=== PATIENT | male | born 1970 | race Caucasian/White ===

== ENCOUNTER 2023-12-21 16:36 | Emergency (ER) | payer MEDICARE, OTHER ==
[2023-12-21 16:44] VITALS: TEMP 97.9
--- NOTE | 2023-12-21 17:11 | ED ---
Nausea/Vomiting/Diarrhea HPI - General Source: patient, RN notes reviewed Mode of arrival: ambulatory Limitations: no limitations <Demetria Ricardo - Last Filed: 12/21/23 17:06> <Mayra Sandoval - Last Filed: 12/21/23 23:18> - General Chief complaint: Nausea/Vomiting/Diarrhea Stated complaint: Nausea,Diarrhea Time Seen by Provider: 12/21/23 16:50 - History of Present Illness Initial comments: quick note- This is a 53 year old male emergency department chief complaint of bilateral inner groin pain, nausea and vomiting over the past month. He states that he's felt chilled with no reported fevers. Denies previous surgeries on his abdomen. (Demetria Rciardo) 53-year-old transgender female presenting with chief complaint of pain to the bilateral inner thighs. Patient states that they currently do not have anywhere to stay, they are recently evicted. States that when they walk this makes the pain to the inner thighs worse. Patient also complaining of pain to the right foot. No new injury or trauma. No redness or swelling. Patient admits to runny nose. Denies fever, chills, nausea, vomiting, chest pain, difficulty breathing, abdominal pain. (Mayra Sandoval) - Related Data Home Medications Medication Instructions Recorded Confirmed Baclofen [Lioresal] 10 mg PO BID 12/04/13 12/23/14 Escitalopram [Lexapro] 20 mg PO DAILY 12/04/13 12/23/14 Estrogens, Conjugated [Premarin] 5 mg PO BID 12/04/13 12/23/14 Gabapentin [Neurontin] 600 mg PO BID 12/04/13 12/23/14 Ibuprofen [Motrin] 600 mg PO BID PRN 12/04/13 12/23/14 Ipratropium/Albuterol Sulfate 1 puff INHALATION QID 12/04/13 12/23/14 [Combivent Respimat Inhaler] Medroxyprogesterone Acetate 10 mg PO DAILY 12/04/13 12/23/14 Spironolactone 50 mg PO DAILY 12/04/13 12/23/14 Ziprasidone [Geodon] 60 mg PO BID 12/04/13 12/23/14 traMADol HCl [Ultram] 50 mg PO Q4H PRN 12/23/14 12/23/14 Previous Rx's Medication Instructions Recorded Indomethacin [Indocin] 50 mg PO TID PRN #15 capsule 12/21/23 Allergies Allergy/AdvReac Type Severity Reaction Status Date / Time No Known Allergies Allergy Verified 12/21/23 16:44 Review of Systems ROS Other: All systems not noted in ROS Statement are negative. <Demetria Ricardo - Last Filed: 12/21/23 17:06> ROS Other: All systems not noted in ROS Statement are negative. <Mayra Sandoval - Last Filed: 12/21/23 23:18> ROS Statement: Those systems with pertinent positive or pertinent negative responses have been documented in the HPI. Past Medical History Past Medical History: Asthma, Hypertension Additional Past Medical History / Comment(s): neck pain History of Any Multi-Drug Resistant Organisms: None Reported Past Surgical History: Unable to Obtain Past Psychological History: Unable to Obtain Smoking Status: Current some day smoker Past Alcohol Use History: None Reported Past Drug Use History: None Reported <Demetria Ricardo - Last Filed: 12/21/23 17:06> General Exam Limitations: no limitations <Demetria Ricardo - Last Filed: 12/21/23 17:06> Limitations: no limitations General appearance: alert, in no apparent distress Head exam: Present: atraumatic, normocephalic Eye exam: Present: normal appearance, EOMI Neck exam: Present: normal inspection. Absent: meningismus Respiratory exam: Absent: respiratory distress Cardiovascular Exam: Present: regular rate Left Foot/Toe exam: Present: normal inspection, full ROM, tenderness. Absent: swelling, abrasion, laceration, erythema, puncture wound Neurological exam: Present: alert, oriented X3 Psychiatric exam: Present: normal affect, normal mood Skin exam: Present: intact, other (Redness to the bilateral inner thighs) <Mayra Sandoval - Last Filed: 12/21/23 23:18> - General Exam Comments Initial Comments: Visual Physical Exam Vital signs reviewed General: Well-appearing, nontoxic, no acute distress. Head: Normocephalic, atraumatic Eyes: PERRLA, EOMI ENT: Airway patent Chest: Nonlabored breathing Skin: No visual rash, normal skin tone Neuro: Alert and oriented 3 Musculoskeletal: No gross abnormalities (Stieler,Demetria) Course Vital Signs 12/21/23 12/21/23 12/21/23 16:42 21:33 22:53 Temperature 97.9 F Pulse Rate 74 81 55 L Respiratory 18 16 16 Rate Blood Pressure 131/81 128/80 121/69 O2 Sat by Pulse 98 100 97 Oximetry Medical Decision Making <Demetria Ricardo - Last Filed: 12/21/23 17:06> - Lab Data Result diagrams: 12/21/23 17:32 12/21/23 19:36 <Mayra Sandoval - Last Filed: 12/21/23 23:18> - Medical Decision Making I completed the quick note portion of this chart signed Demetria Ricardo PA-C (Demetria Ricardo) Was pt. sent in by a medical professional or institution ([facility], REHABILITATION THERAPIST, urgent care, hospital, or penitentiary...) When possible be specific @ -No Did you speak to anyone other than the patient for history (EMS, parent, family, police, friend...)? What history was obtained from this source @ -No Did you review nursing and triage notes (agree or disagree)? Why? @ -I reviewed and agree with nursing and triage notes Were old charts reviewed (outside hosp., previous admission, EMS record, old EKG, old radiological studies, urgent care reports/EKG's, penitentiary records)? Report findings @ -No old charts were reviewed Differential Diagnosis (chest pain, altered mental status, abdominal pain women, abdominal pain men, vaginal bleeding, weakness, fever, dyspnea, syncope, headache, dizziness, GI bleed, back pain, seizure, CVA, palpatations, mental health, musculoskeletal)? @ -Differential Musculoskeletal Muscular strain, contusion, ligament sprain, fracture, arthritis, septic arthritis, bursitis, cellulitis, muscle spasm, nerve compression, DVT, arterial occlusion, herpes zoster, electrolyte abnormality, tumor.... This is not meant to be in all inclusive list EKG interpreted by me (3pts min.). @ -As above X-rays interpreted by me (1pt min.). @ -Foot x-ray shows moderate first MTP joint OA. Small plantar heel spur all. No acute osseous body seen. CT interpreted by me (1pt min.). @ -None done U/S interpreted by me (1pt. min.). @ -None done What testing was considered but not performed or refused? (CT, X-rays, U/S, labs)? Why? @ -None What meds were considered but not given or refused? Why? @ -None Did you discuss the management of the patient with other professionals (professionals i.e. , PA, REHABILITATION THERAPIST, lab, RT, psych nurse, social services analyst, button cutter, teacher, senior escrow officer, bottle caser)? Give summary @ -No Was smoking cessation discussed for >3mins.? @ -No Was critical care preformed (if so, how long)? @ -No Were there social determinants of health that impacted care today? How? (Homelessness, low income, unemployed, alcoholism, drug addiction, transportation, low edu. Level, literacy, decrease access to med. care, long term, rehab)? @ -No Was there de-escalation of care discussed even if they declined (Discuss DNR or withdrawal of care, Hospice)? DNR status @ -No What co-morbidities impacted this encounter? (DM, HTN, Smoking, COPD, CAD, Cancer, CVA, ARF, Chemo, Hep., AIDS, mental health diagnosis, sleep apnea, morbid obesity)? @ -None Was patient admitted / discharged? Hospital course, mention meds given and route, prescriptions, significant lab abnormalities, going to OR and other pertinent info. @ -53-year-old transgender female presenting with chief complaint of pain to the bilateral inner thighs as well as the left foot. On exam there is some redness to the skin folds on the inner thighs. Left foot shows no cellulitic changes, no lacerations or abrasions. Pain surrounding the MTP joint. Lab work shows no leukocytosis or anemia. Uric acid WNL. Foot x-ray negative for fract ure or dislocation. The patient's inner thigh pain seems to be attributed to yeast infection of the skin. Provided with clotrimazole betamethasone cream. Patient is provided with indomethacin for foot pain. Discharged. Follow-up with PCP. Report back to ER with any new or worsening symptoms. Discussed return parameters and answered all questions. Patient conveyed verbal understanding and agreed to the plan. I discussed this case in detail with my attending Dr. Sandoval Undiagnosed new problem with uncertain prognosis? @ -No Drug Therapy requiring intensive monitoring for toxicity (Heparin, Nitro, Insulin, Cardizem)? @ -No Were any procedures done? @ -No Diagnosis/symptom? @ -Yeast infection of the skin, gout Acute, or Chronic, or Acute on Chronic? @ -Acute Uncomplicated (without systemic symptoms) or Complicated (systemic symptoms)? @ -Uncomplicated Side effects of treatment? @ -No Exacerbation, Progression, or Severe Exacerbation? @ -No Poses a threat to life or bodily function? How? (Chest pain, USA, [place], pneumonia, PE, COPD, DKA, ARF, appy, cholecystitis, CVA, Diverticulitis, Homicidal, Suicidal, threat to staff... and all critical care pts) @ -Low likelihood (Mayra Sandoval) - Lab Data Lab Results 12/21/23 12/21/23 12/21/23 Range/Units 17:32 17:32 19:36 WBC 9.7 (3.8-10.6) k/uL RBC 4.38 (4.30-5.90) m/uL Hgb 13.7 (13.0-17.5) gm/dL Hct 42.3 (39.0-53.0) % MCV 96.7 (80.0-100.0) fL MCH 31.3 (25.0-35.0) pg MCHC 32.4 (31.0-37.0) g/dL RDW 13.3 (11.5-15.5) % Plt Count 198 (150-450) k/uL MPV 9.9 Neutrophils % 63 % Lymphocytes % 25 % Monocytes % 6 % Eosinophils % 3 % Basophils % 1 % Neutrophils # 6.0 (1.3-7.7) k/uL Lymphocytes # 2.4 (1.0-4.8) k/uL Monocytes # 0.6 (0-1.0) k/uL Eosinophils # 0.3 (0-0.7) k/uL Basophils # 0.1 (0-0.2) k/uL Sodium 140 (137-145) mmol/L Potassium 3.7 (3.5-5.1) mmol/L Chloride 107 (98-107) mmol/L Carbon Dioxide 22 (22-30) mmol/L Anion Gap 11 mmol/L BUN 17 (9-20) mg/dL Creatinine 0.90 (0.66-1.25) mg/dL Est GFR (CKD-EPI)AfAm >90 (>60 ml/min/1.73 sqM) Est GFR (CKD-EPI)NonAf >90 (>60 ml/min/1.73 sqM) Glucose 91 (74-99) mg/dL Plasma Lactic Acid Serafin 1.6 (0.7-2.0) mmol/L Uric Acid (3.5-8.5) mg/dL Calcium 9.3 (8.4-10.2) mg/dL Total Bilirubin 1.2 (0.2-1.3) mg/dL AST 48 (17-59) U/L ALT 21 (4-49) U/L Alkaline Phosphatase 75 (38-126) U/L Total Protein 7.1 (6.3-8.2) g/dL Albumin 4.5 (3.5-5.0) g/dL Amylase 48 (30-110) U/L Lipase 134 (23-300) U/L Urine Color Urine Appearance (Clear) Urine pH (5.0-8.0) Ur Specific Antonito (1.001-1.035) Urine Protein (Negative) Urine Glucose (UA) (Negative) Urine Ketones (Negative) Urine Blood (Negative) Urine Nitrite (Negative) Urine Bilirubin (Negative) Urine Urobilinogen (<2.0) mg/dL Ur Leukocyte Esterase (Negative) 12/21/23 12/21/23 Range/Units 21:15 21:51 WBC (3.8-10.6) k/uL RBC (4.30-5.90) m/uL Hgb (13.0-17.5) gm/dL Hct (39.0-53.0) % MCV (80.0-100.0) fL MCH (25.0-35.0) pg MCHC (31.0-37.0) g/dL RDW (11.5-15.5) % Plt Count (150-450) k/uL MPV Neutrophils % % Lymphocytes % % Monocytes % % Eosinophils % % Basophils % % Neutrophils # (1.3-7.7) k/uL Lymphocytes # (1.0-4.8) k/uL Monocytes # (0-1.0) k/uL Eosinophils # (0-0.7) k/uL Basophils # (0-0.2) k/uL Sodium (137-145) mmol/L Potassium (3.5-5.1) mmol/L Chloride (98-107) mmol/L Carbon Dioxide (22-30) mmol/L Anion Gap mmol/L BUN (9-20) mg/dL Creatinine (0.66-1.25) mg/dL Est GFR (CKD-EPI)AfAm (>60 ml/min/1.73 sqM) Est GFR (CKD-EPI)NonAf (>60 ml/min/1.73 sqM) Glucose (74-99) mg/dL Plasma Lactic Acid Serafin (0.7-2.0) mmol/L Uric Acid 5.7 (3.5-8.5) mg/dL Calcium (8.4-10.2) mg/dL Total Bilirubin (0.2-1.3) mg/dL AST (17-59) U/L ALT (4-49) U/L Alkaline Phosphatase (38-126) U/L Total Protein (6.3-8.2) g/dL Albumin (3.5-5.0) g/dL Amylase (30-110) U/L Lipase (23-300) U/L Urine Color Yellow Urine Appearance Clear (Clear) Urine pH 5.5 (5.0-8.0) Ur Specific Antonito 1.029 (1.001-1.035) Urine Protein Trace H (Negative) Urine Glucose (UA) Trace H (Negative) Urine Ketones 1+ H (Negative) Urine Blood Negative (Negative) Urine Nitrite Negative (Negative) Urine Bilirubin Negative (Negative) Urine Urobilinogen 2.0 (<2.0) mg/dL Ur Leukocyte Esterase Negative (Negative) Disposition <Demetria Ricardo - Last Filed: 12/21/23 17:06> Is patient prescribed a controlled substance at d/c from ED?: No <Mayra Sandoval - Last Filed: 12/21/23 23:18> Clinical Impression: Yeast infection of the skin, Gout Disposition: HOME SELF-CARE Condition: Good Instructions (If sedation given, give patient instructions): Low Purine Diet (ED), Gout (ED), Skin Yeast Infection (ED) Additional Instructions: Follow-up with your PCP. Report back to ER with any new or worsening symptoms. Apply antifungal cream twice daily. Prescriptions: Indomethacin [Indocin] 50 mg PO TID PRN #15 capsule PRN Reason: Pain Referrals: None,Stated [REFERRING] - 1-2 days Dell Alvarez MD [STAFF PHYSICIAN] - 1-2 days
[2023-12-21 18:12] LABS: Basophils # (A) 0.1 k/uL (0-0.2); Basophils % (A) 1 %; Eosinophils # (A) 0.3 k/uL (0-0.7); Eosinophils % (A) 3 %; HCT 42.3 % (39.0-53.0); HGB 13.7 gm/dL (13.0-17.5); Lymphocytes # (A) 2.4 k/uL (1.0-4.8); Lymphocytes % (A) 25 %; MCH 31.3 pg (25.0-35.0); MCHC 32.4 g/dL (31.0-37.0); MCV 96.7 fL (80.0-100.0); Mean Platelet Volume 9.9; Monocytes # (A) 0.6 k/uL (0-1.0); Monocytes % (A) 6 %; Neutrophils % (A) 63 %; Platelet Count 198 k/uL (150-450); RBC 4.38 m/uL (4.30-5.90); RDW 13.3 % (11.5-15.5); WBC 9.7 k/uL (3.8-10.6)
[2023-12-21 20:18] LABS: ALT 21 U/L (4-49); AST 48 U/L (17-59); African American GFR (CKD) >90 (>60 ml/min/1.73 sqM); Albumin 4.5 g/dL (3.5-5.0); Alkaline Phosphatase 75 U/L (38-126); Amylase 48 U/L (30-110); Anion Gap 11 mmol/L; Blood Urea Nitrogen 17 mg/dL (9-20); Calcium 9.3 mg/dL (8.4-10.2); Carbon Dioxide 22 mmol/L (22-30); Chloride 107 mmol/L (98-107); Glucose 91 mg/dL (74-99); Lipase 134 U/L (23-300); Non-African American GFR(CKD) >90 (>60 ml/min/1.73 sqM); Potassium 3.7 mmol/L (3.5-5.1); Sodium 140 mmol/L (137-145); Total Bilirubin 1.2 mg/dL (0.2-1.3); Total Protein 7.1 g/dL (6.3-8.2)
[2023-12-21 21:34] VITALS: RESP 16
[2023-12-21 21:38] LABS: Appearance,Urine Clear (Clear); Bilirubin,Urine Negative (Negative); Blood,Urine Negative (Negative); Color,Urine Yellow; Glucose,Urine (UA) Trace (Negative); Ketones,Urine 1+ (Negative); Leukocyte Esterase,Urine Negative (Negative); Nitrite,Urine Negative (Negative); PH, Urine 5.5 (5.0-8.0); Protein,Urine Trace (Negative); Specific Gravity,Urine 1.029 (1.001-1.035)
[2023-12-21] MEDS: KETOROLAC 15 MG/ML 1 ML VIAL IVP STA (21:54)
--- NOTE | 2023-12-21 22:00 | XR ---
EXAMINATION TYPE: XR foot complete 3 views LT DATE OF EXAM: 12/21/2023 Comparison: None Clinical History: 53-year-old male MTP pain Findings: Moderate degenerative change first MTP joint with joint space narrowing, marginal spurring, and subch ondral sclerosis. Small plantar heel spur. No acute fracture, subluxation, dislocation. Impression: Moderate first MTP joint OA. Small plantar heel spur. No acute osseous body seen.
[2023-12-21] MEDS: CLOTRIMAZOLE/BETAMETH 1-0.05% CREAM 45 GM TUBE TOPICAL SCH (22:49)
[2023-12-21 22:54] VITALS: BP 121/69; PULSE 55
== END 2023-12-21 22:54 | disposition home or self-care (01) ==
LOC: EC 16:36
DX: M10.9 Gout, unspecified (principal); B37.2 Candidiasis of skin and nail; F17.200 Nicotine dependence, unspecified, uncomplicated
CPT/HCPCS: 36415; 80053; 82150; 83605; 83690; 84550; 85025; 81003; 73630; 99284; 96374; J1885

== ENCOUNTER 2024-04-19 11:06 | Emergency (ER) | payer MEDICARE, OTHER ==
[2024-04-19 11:28] VITALS: RESP 18
--- NOTE | 2024-04-19 11:44 | ED ---
ENT HPI - General Chief complaint: ENT Stated complaint: L ear issue Time Seen by Provider: 04/19/24 11:39 Source: patient, RN notes reviewed Mode of arrival: ambulatory Limitations: no limitations - History of Present Illness Initial comments: 53-year-old male presenting with left sided hearing loss x 1 month. Patient states he has been dealing with sinus congestion, pressure in the ears, and hearing loss bilaterally but worse on the left side. Denies ear pain. Denies injury or trauma to the ear. - Related Data Home Medications Medication Instructions Recorded Confirmed Baclofen [Lioresal] 10 mg PO BID 12/04/13 12/23/14 Escitalopram [Lexapro] 20 mg PO DAILY 12/04/13 12/23/14 Estrogens, Conjugated [Premarin] 5 mg PO BID 12/04/13 12/23/14 Gabapentin [Neurontin] 600 mg PO BID 12/04/13 12/23/14 Ibuprofen [Motrin] 600 mg PO BID PRN 12/04/13 12/23/14 Ipratropium/Albuterol Sulfate 1 puff INHALATION QID 12/04/13 12/23/14 [Combivent Respimat Inhaler] Medroxyprogesterone Acetate 10 mg PO DAILY 12/04/13 12/23/14 Spironolactone 50 mg PO DAILY 12/04/13 12/23/14 Ziprasidone [Geodon] 60 mg PO BID 12/04/13 12/23/14 traMADol HCl [Ultram] 50 mg PO Q4H PRN 12/23/14 12/23/14 Previous Rx's Medication Instructions Recorded Indomethacin [Indocin] 50 mg PO TID PRN #15 capsule 12/21/23 Amoxicillin 875 mg PO Q12HR 7 Days #14 tablet 04/19/24 Allergies Allergy/AdvReac Type Severity Reaction Status Date / Time No Known Allergies Allergy Verified 12/21/23 16:44 Review of Systems ROS Statement: Those systems with pertinent positive or pertinent negative responses have been documented in the HPI. ROS Other: All systems not noted in ROS Statement are negative. Past Medical History Past Medical History: Asthma, Hypertension Additional Past Medical History / Comment(s): neck pain History of Any Multi-Drug Resistant Organisms: None Reported Past Surgical History: Unable to Obtain Past Psychological History: Unable to Obtain Smoking Status: Current some day smoker Past Alcohol Use History: None Reported Past Drug Use History: None Reported General Exam Limitations: no limitations General appearance: alert, in no apparent distress Head exam: Present: atraumatic, normocephalic, normal inspection Eye exam: Present: normal appearance, PERRL, EOMI. Absent: scleral icterus, conjunctival injection, periorbital swelling ENT exam: Present: normal exam, mucous membranes moist, other (no mastoid er ythema or tenderness). Absent: TM's normal bilaterally (Left TM erythematous and bulging, normal ear canal) Neck exam: Present: normal inspection. Absent: tenderness, meningismus, lymphadenopathy Respiratory exam: Present: normal lung sounds bilaterally. Absent: respiratory distress, wheezes, rales, rhonchi, stridor Cardiovascular Exam: Present: regular rate, normal rhythm, normal heart sounds. Absent: systolic murmur, diastolic murmur, rubs, gallop, clicks Neurological exam: Present: alert, oriented X3 Psychiatric exam: Present: normal affect, normal mood Skin exam: Present: warm, dry, intact, normal color. Absent: rash Course Vital Signs 04/19/24 04/19/24 11:15 11:25 Temperature 97.4 F L Pulse Rate 70 Respiratory 20 18 Rate Blood Pressure 117/71 O2 Sat by Pulse 94 L Oximetry Medical Decision Making - Medical Decision Making Was pt. sent in by a medical professional or institution ([facility], MARKETING LEAD, urgent care, hospital, or fci...) When possible be specific @ -No Did you speak to anyone other than the patient for history (EMS, parent, family, police, friend...)? What history was obtained from this source @ -No Did you review nursing and triage notes (agree or disagree)? Why? @ -I reviewed and agree with nursing and triage notes Were old charts reviewed (outside hosp., previous admission, EMS record, old EKG, old radiological studies, urgent care reports/EKG's, [facility]ci records)? Report findings @ -No old charts were reviewed Differential Diagnosis (chest pain, altered mental status, abdominal pain women, abdominal pain men, vaginal bleeding, weakness, fever, dyspnea, syncope, headache, dizziness, GI bleed, back pain, seizure, CVA, palpatations, mental health, musculoskeletal)? @ -Otitis media, cerumen impaction, viral URI, COVID, influenza, foreign object EKG interpreted by me (3pts min.). @ -None X-rays interpreted by me (1pt min.). @ -None done CT interpreted by me (1pt min.). @ -None done U/S interpreted by me (1pt. min.). @ -None done What testing was considered but not performed or refused? (CT, X-rays, U/S, labs)? Why? @ -None What meds were considered but not given or refused? Why? @ -None Did you discuss the management of the patient with other professionals (professionals i.e. , PA, MARKETING LEAD, lab, RT, psych nurse, social science research assistant, rn clinical research, teacher, navigation officer, welfare case worker)? Give summary @ -No Was smoking cessation discussed for >3mins.? @ -No Was critical care preformed (if so, how long)? @ -No Were there social determinants of health that impacted care today? How? (Homelessness, low income, unemployed, alcoholism, drug addiction, transportation, low edu. Level, literacy, decrease access to med. care, [facility], rehab)? @ -No Was there de-escalation of care discussed even if they declined (Discuss DNR or withdrawal of care, Hospice)? DNR status @ -No What co-morbidities impacted this encounter? (DM, HTN, Smoking, COPD, CAD, Cancer, CVA, ARF, Chemo, Hep., AIDS, mental health diagnosis, sleep apnea, morbid obesity)? @ -None Was patient admitted / discharged? Hospital course, mention meds given and route, prescriptions, significant lab abnormalities, going to OR and other pertinent info. @ -Discharge. This is a 53-year-old male presenting with left-sided hearing loss x 1 month. Patient does endorse sinus congestion and ear pressure over the past few days. On examination, left TM is erythematous and bulging, normal ear canal. Cepheid negative. Discussed diagnosis of left otitis media. Scribed high-dose amoxicillin to pharmacy. As this has been ongoing for 1 month, advised to follow-up with ENT specialist as well as PCP. Patient is agreeable to plan. Case was discussed with the ED attending Dr. Abbasi. Patient discharged stable condition. Undiagnosed new problem with uncertain prognosis? @ -No Drug Therapy requiring intensive monitoring for toxicity (Heparin, Nitro, Insulin, Cardizem)? @ -No Were any procedures done? @ -No Diagnosis/symptom? @ -Left otitis media Acute, or Chronic, or Acute on Chronic? @ -Acute Uncomplicated (without systemic symptoms) or Complicated (systemic symptoms)? @ -Uncomplicated Side effects of treatment? @ -No Exacerbation, Progression, or Severe Exacerbation? @ -No Poses a threat to life or bodily function? How? (Chest pain, [place], [place], pneumonia, PE, COPD, DKA, ARF, appy, cholecystitis, CVA, Diverticulitis, Homicidal, Suicidal, threat to staff... and all critical care pts) @ -No - Lab Data Lab Results 04/19/24 Range/Units 12:08 Influenza Type A (PCR) Not Detected (Not Detectd) Influenza Type B (PCR) Not Detected (Not Detectd) RSV (PCR) Not Detected (Not Detectd) SARS-CoV-2 (PCR) Not Detected (Not Detectd) Disposition Clinical Impression: Left otitis media Disposition: HOME SELF-CARE Condition: Stable Instructions (If sedation given, give patient instructions): Ear Infection (ED) Additional Instructions: Take amoxicillin twice daily for 7 days. Follow-up with PCP and ENT specialist. Please return to the Emergency Department if symptoms worsen or any other concerns. Prescriptions: Amoxicillin 875 mg PO Q12HR 7 Days #14 tablet Is patient prescribed a controlled substance at d/c from ED?: No Referrals: Ahmet Lemon MD [Primary Care Provider] - 1-2 days Ridge Sanders MD [STAFF PHYSICIAN] - 1-2 days Time of Disposition: 13:12
[2024-04-19 13:34] VITALS: BP 118/81; PULSE 65; TEMP 97.7
== END 2024-04-19 13:37 | disposition home or self-care (01) ==
LOC: EC 11:06
DX: H66.92 Otitis media, unspecified, left ear (principal); F17.200 Nicotine dependence, unspecified, uncomplicated
CPT/HCPCS: 87636; 99283

== ENCOUNTER 2024-12-21 16:34 | Emergency (ER) | payer MEDICARE, OTHER ==
[2024-12-21 17:07] LABS: Basophils # (A) 0.13 10*3/uL (0.00-0.10); Basophils % (A) 1.5 %; Eosinophils # (A) 0.13 10*3/uL (0.04-0.35); Eosinophils % (A) 1.5 %; HCT 40.8 % (39.6-50.0); HGB 14.0 g/dL (13.0-17.0); Lymphocytes # (A) 2.15 10*3/uL (0.90-5.00); Lymphocytes % (A) 25.3 %; MCH 32.2 pg (27.0-32.0); MCHC 34.3 g/dL (32.0-37.0); MCV 93.8 fL (80.0-97.0); Monocytes # (A) 0.68 10*3/uL (0.20-1.00); Monocytes % (A) 8.0 %; Neutrophils # (A) 5.39 10*3/uL (1.80-7.70); Neutrophils % (A) 63.3 %; Platelet Count 201 10*3/uL (140-440); RBC 4.35 10*6/uL (4.40-5.60); RDW 12.7 % (11.5-14.5); WBC 8.51 10*3/uL (4.50-10.00)
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
[2024-12-21 17:18] VITALS: RESP 18
[2024-12-21 17:18] LABS: Potassium 4.3 mmol/L (3.5-5.1)
[2024-12-21 17:19] LABS: ALT 16 U/L (4-49); AST 26 U/L (17-59); African American GFR (CKD) >90 (>60 ml/min/1.73 sqM); Albumin 3.7 g/dL (3.5-5.0); Alkaline Phosphatase 59 U/L (38-126); Anion Gap 8 mmol/L; Blood Urea Nitrogen 19 mg/dL (9-20); Calcium 9.0 mg/dL (8.4-10.2); Carbon Dioxide 23 mmol/L (22-30); Chloride 105 mmol/L (98-107); Glucose 102 mg/dL (74-99); Non-African American GFR(CKD) 88 (>60 ml/min/1.73 sqM); Sodium 136 mmol/L (137-145); Total Protein 5.8 g/dL (6.3-8.2)
[2024-12-21 17:19] LABS: Glucose,Whole Blood 117 mg/dL (70-110)
[2024-12-21] MEDS: MORPHINE SULFATE 4 MG/ML SYRINGE IVP STA (17:20)
[2024-12-21 17:23] LABS: INR 1.0 (<1.2); Partial Thromboplastin Time 21.7 sec (22.0-30.0); Prothrombin Time 11.1 sec (10.0-12.5)
[2024-12-21] MEDS: DIPH,PERTUS(ACELL)TETVAC-LF 0.5 ML VIAL IM ONE (17:26)
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
[2024-12-21 18:57] LABS: Barbiturate Screen,Urine Not Detected (NotDetected); Benzodiazepines Screen,Urine Not Detected (NotDetected); Opiate Screen,Urine Detected (NotDetected); Oxycodone Screen, Urine Not Detected (NotDetected); Phencyclidine Screen,Urine Not Detected (NotDetected); Tricyclic Antidepressant,Urine Not Detected (NotDetected); Urn Cannabinoid Scrn Not Detected (NotDetected)
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
[2024-12-21 20:40] VITALS: BP 146/94; PULSE 61; TEMP 98.1
== END 2024-12-21 20:44 | disposition home or self-care (01) ==
LOC: EC 16:34
DX: M25.571 Pain in right ankle and joints of right foot (principal); M79.632 Pain in left forearm; F17.200 Nicotine dependence, unspecified, uncomplicated; Z23 Encounter for immunization; V89.2XXA Person injured in unspecified motor-vehicle accident, traffic, initial encounter; Y93.55 Activity, bike riding
CPT/HCPCS: 36415; 93005; 86900; 86901; 80053; 83605; 84484; 85025; 85610; 85730; 86850; 80306; 80320; 72170; 73090; 73590; 73600; 71045; 71260; 74177; 90715; 99284; 90471; 96365; 96375; J2270; J0690; Q9967